=== PATIENT | female | born 1955 | race Caucasian/White ===

== ENCOUNTER 2017-04-14 05:54 | Day surgery (SDC) | payer BC ==
--- NOTE | 2017-04-08 17:43 | HP ---
HISTORY AND PHYSICAL: DATE OF ADMISSION/SURGERY: 04/14/17 DATE OF OFFICE VISIT: 04/08/17 SURGEON: Sharon Victor MD * (DICTATED BY COLLIN HARO) PROCEDURE: Right knee arthroscopy with partial medial meniscectomy, possible chondroplasty, possible synovectomy. CHIEF COMPLAINT: Right knee pain. HISTORY OF PRESENT ILLNESS: Ms. Fisher is a 61-year-old female with complaints of right knee pain and MRI confirmed the medial meniscus tear. She has elected to proceed with surgery. PAST MEDICAL HISTORY: Breast cancer and depression. PAST SURGICAL HISTORY: Bilateral mastectomy with reconstruction and hysterectomy. CURRENT MEDICATIONS: 1. Cymbalta 60 mg daily. 2. Calcium 600 plus vitamin D. 3. Multivitamin. 4. Letrozole 2.5 mg. 5. PreserVision AREDS. 6. Terbinafine 250 mg once a day. 7. Vitamin D. ALLERGIES: None. FAMILY HISTORY: Congestive heart failure and hypertension. SOCIAL HISTORY: She is a 61-year-old female. She lives with her . She does not smoke, use drugs, or alcohol. REVIEW OF SYSTEMS: A complete 14-point review of systems was reviewed with the patient, was all negative or noncontributory. PHYSICAL EXAMINATION GENERAL: She is well developed, well nourished, in no acute distress. VITAL SIGNS: She stands 5 feet 9 inches tall, weighs 170 pounds. Her blood pressure is 122/80, her heart rate is 78. HEENT: Normocephalic, atraumatic. NECK: Supple. No palpable lymph nodes. PULMONARY: Lungs are clear to auscultation bilaterally. CARDIO: Regular rate and rhythm. Strong S1, S2. ABDOMEN: Soft, nontender, nondistended. MUSCULOSKELETAL: Right lower extremity, the skin is intact. There are no open wounds or abrasions. She has some tenderness over the medial joint line. There is a mild effusion. Positive Apley's. Positive Melania's. 2+ dorsalis pedis pulses. Intact sensation and her lower extremity muscle group strengths are intact at 5/5. ASSESSMENT AND PLAN: Ms. Fisher is a 61-year-old female with complaints of right knee pain and MRI confirms medial meniscus tear. She has elected to proceed with right knee arthroscopy with partial medial meniscectomy, possible chondroplasty, possible synovectomy. The surgery is scheduled for 04/14/[address] Vitcor discussed the risks and benefits of the surgery at today's visit and all of her questions were answered. She will follow up with Dr. Victor 2 weeks after the surgery. COLLIN HARO [id number]/[facility] [place]: [id number] [place]
[~2017-04-14 05:54] MED LIST: Buffered Lidocaine 0.9% SYRIN* 5 ML/SYR SYRINGE INTRADERM ONE
[2017-04-14] MEDS ORDERED: EPINEPHRINE 1 MG/ML 1 ML VIAL IM ONE (05:55)
[2017-04-14] MEDS ORDERED: Dexamethasone IV* 4 MG/ML 1 ML (4 MG) IV SLOW PU ONE (06:00)
[2017-04-14] MEDS ORDERED: Famotidine IV* 10 MG/ML 2 ML (20 mg) IV ONE (06:00)
[2017-04-14] MEDS ORDERED: ceFAZolin 2 GM PREMIX (*) 2 GM/50 ML BAG IVPB ONE (06:07)
[2017-04-14] MEDS ORDERED: Dexamethasone IV* 4 MG/ML 1 ML (4 MG) ONE (06:07)
[2017-04-14] MEDS ORDERED: Famotidine IV* 10 MG/ML 2 ML (20 mg) ONE (06:07)
[2017-04-14] MEDS ORDERED: Buffered Lidocaine 0.9% SYRIN* 5 ML/SYR SYRINGE ONE (06:08)
[2017-04-14] MEDS ORDERED: methylPREDNISolone ACETATE 80* 80 MG/ML 1 ML VIAL ONE (06:55)
[2017-04-14] MEDS ORDERED: EPINEPHRINE 1 MG/ML 1 ML VIAL ONE (06:55)
[2017-04-14] MEDS ORDERED: Bupivacaine 0.5% SDV PF* 10-30ML VIAL ONE (06:56)
[2017-04-14] MEDS ORDERED: Naloxone* 0.4 MG/ML 1 ML VIAL IV PRN (07:19)
[2017-04-14] MEDS ORDERED: fentaNYL* 50 MCG/ML 2 ML VIAL (100 MCG VIAL) IV PRN (07:19)
[2017-04-14] MEDS ORDERED: oxyCODONE/Acetamin 5/325 MG* TAB PO PRN (07:19)
[2017-04-14] MEDS ORDERED: PROCHLORPERAZINE INJ 5 MG/ML 2 ML VIAL IV PRN (07:19)
[2017-04-14] MEDS ORDERED: HYDROcodone/ACETAMIN 5-325 MG* 1 TAB PO PRN (07:19)
[2017-04-14] MEDS ORDERED: Ketorolac INJ* 30 MG/ML 1 ML VIAL ONE (07:35)
[2017-04-14] MEDS ORDERED: Ondansetron INJ* 2 MG/ML VIAL ONE (07:53)
[2017-04-14 09:07] VITALS: BP 128/73
--- NOTE | 2017-04-15 14:53 | OP ---
DATE OF OPERATION: 04/14/17 - [facility] DATE OF : 51 SURGEON: Sharon Victor MD VITICULTURIST: COLLIN Alejandro. Mr. Hartmann did help throughout the procedure with preparation of the leg, wound retraction, manipulation of the knee and wound closure. ANESTHESIOLOGIST: Jus Beltre MD ANESTHESIA: General. PRE-OP DIAGNOSES: Right knee pain with medial meniscal tear and mild arthritis. 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 OPERATIVE PROCEDURE: Right knee arthroscopy with partial medial meniscectomy and patellofemoral chondroplasty. INDICATIONS: Ms. Byrnes is a 61-year-old female, who had several months of mechanical symptoms and pain in the right knee. Conservative treatment failed to relieve her pain and MRI confirms a medial meniscal tear. Due to the patient' s pain and decreased quality of life, she elected to undergo right knee arthroscopy, partial medial meniscectomy, possible synovectomy, possible chondroplasty. Informed consent was obtained from the patient. She understood the risks of surgery included, but were not limited to, bleeding, infection, damage to nearby structures, continued pain, need for further surgery, continued arthritis, retear of the meniscus, stroke, heart attack, blood clot, and . She wished to proceed. ESTIMATED BLOOD LOSS: Less than 25 cc. COMPLICATIONS: None. SPECIMEN: None. INTRAOPERATIVE FINDINGS: Intraoperatively, the patient was noted to have grade 3 and 4 Outerbridge cartilage changes in the patellofemoral compartment, grade 2 and 3 Outerbridge cartilage changes in the medial compartment. She has got a parrot beak-type tear with anterior displacement and the posterior one-third of the medial meniscus involving mainly the white-red zone. No loose bodies were encountered . DESCRIPTION OF PROCEDURE: Ms. Fisher was identified in the preanesthesia unit. Her right lower extremity was marked as the correct operative side. Informed consent was signed and placed in the chart. The patient was taken to the operating room and placed under general anesthesia. Right lower extremity was prepped and draped in the usual sterile fashion. Preop time-out was made to correctly identify the patient's side and site. Appropriate perioperative antibiotics were given within 1 hour of incision. A 0.5-cm anterolateral portal incision was made with a 15 blade and carried down to the capsule. Trocar was introduced. As soon as light and water sources were turned on, there was immediate visualization of the suprapatellar pouch. A tour of the knee joint was performed. No loose body was seen in the suprapatellar pouch. Patellofemoral compartment showed grade 3 and 4 Outerbridge cartilage changes with some cartilage flapping and fraying. There was exposed subchondral bone along the medial patellar facet. Medial gutter showed no significant plica. There was no obvious loose body. Medial compartment shows grade 2 and 3 Outerbridge cartilage changes along the medial femoral condyle. The posterior medial meniscus had an obvious tear with some anterior displacement. ACL and PCL appeared to be intact anteriorly. There was no loose body in the joint. The knee was placed in the figure-of-4 position. There were no significant degenerative changes in the lateral compartment. No obvious lateral meniscal tear. No loose body was visualized. Lateral gutter had no obvious loose bodies. Under direct visualization, a medial portal incision was made with a 15 blade. A probe was introduced and a second tour of the knee joint was performed. No additional findings were noted. Shaver and radiofrequency ablation wand were used to excise small amounts of inflammatory tissue from the anterior joint to improve visualization. Straight biter and shaver were then used to perform partial medial meniscectomy mainly in the white-red zone of the posterior one- third of the medial meniscus. A smooth border was obtained. The area was probed and there were no further tears noted. Next, the radiofrequency ablation wand was used to smooth any cartilage flaps or fraying in the patellofemoral compartments. The knee was once again inspected for any loose bodies and none was found. The knee was copiously irrigated with sterile saline. All instruments were removed and the incisions were closed with interrupted 3-0 nylon suture. Intraarticular injection of 80 mg of Depo-Medrol and 6 cc of 0.25% Marcaine was placed in the knee joint. The patient's incisions were covered with Xeroform, 4x4s, and Webril. Cold pack and Mario wrap were placed over this. The patient's anesthesia was reversed without difficulty. She was taken to the PACU in stable condition. Intended weightbearing will be weightbearing as tolerated. Intended DVT prophylaxis will be aspirin for 2 weeks. [id number]/[facility] #: [id number] LAZARO
== END 2017-04-14 09:35 | disposition home or self-care (01) ==
LOC: OR 05:54
PROVIDERS: ATTEND Orthopaedic Surgery Adult Reconstructive Orthopaedic Surgery
DX: M23.203 Derangement of unspecified medial meniscus due to old tear or injury, right knee (principal); M17.11 Unilateral primary osteoarthritis, right knee; Z85.3 Personal history of malignant neoplasm of breast; G62.9 Polyneuropathy, unspecified; F32.9 Major depressive disorder, single episode, unspecified
CPT/HCPCS: J0690; J1040; J1100; J1885; J2405